=== PATIENT | female | born 1980 | race Caucasian/White ===

== ENCOUNTER → 2018-03-20 12:47 | Outpatient (CLI) | payer OTHER, SELFPAY ==
--- NOTE | 2018-03-20 | DI.MRI.S_ITS ---
PROCEDURE: MR SHOULDER RT W CON INDICATIONS: RIGHT SHOULDER PAIN TECHNIQUE: After the administration of 12 mL of dilute intra-articular Gadolinium contrast, oblique coronal T1 and T2 spin echo with fat saturation, oblique sagittal T1 spin echo with and without fat saturation, oblique sagittal T2 fast spin echo with fat saturation, axial T1 spin echo with fat saturation through the shoulder. COMPARISON: [facility], , [place] ARTHROGRAM SHOULDER RT, 03/20/2018, 13:04. FINDINGS: Image quality: Diagnostic. Rotator cuff: No full-thickness or high-grade partial-thickness tear of the rotator cuff is identified. Low-grade bursal surface partial-thickness tearing is present involving the supraspinatus and infraspinatus tendons with corresponding tendinopathy. There are questionable calcifications along the distal margin of the supraspinatus and infraspinatus tendons. The subscapularis tendon demonstrates mild increased signal. The teres minor tendon is intact. There is no significant atrophy of the rotator cuff muscles. Bones and bursae: No acute fracture or dislocation is present. There is no suspicious osseous lesion. There are mild degenerative changes of the glenohumeral and acromioclavicular joints. Mild downsloping of the lateral acromion is present. There is adequate distention of the glenohumeral joint with the injected contrast. No loose intra-articular joint bodies are evident. None of the contrast extends into the subacromial subdeltoid bursa. However, there is mild thickening of the bursa. Capsule and soft tissues: There is heterogeneity along the posterosuperior aspect of the labrum, suspicious for a subtle labral tear. No detached labral fragment or large labral tears are identified. The long head of the biceps tendon is normally positioned within the bicipital groove and is otherwise intact and unremarkable. The superior and inferior glenohumeral ligaments are intact. The middle glenohumeral ligament is either diminutive or congenitally absent. IMPRESSION: 1. Low-grade partial-thickness tearing and tendinopathy of the supraspinatus and infraspinatus tendons with corresponding tendinopathy. Slight heterogeneity on the distal aspect of the tendons could represent subtle calcifications and clinical correlation to exclude calcific tendinitis is recommended. No full-thickness tear. 2. Possible small posterosuperior labral tear. 3. Mild degenerative changes of the glenohumeral and acromioclavicular joints. Dictated by: Brandon Lopez M.D. on 03/20/2018 at 14:52 Approved by: Brandon Lopez M.D. on 03/20/2018 at 14:55
--- NOTE | 2018-03-20 | DI.RAD.S_ITS ---
PROCEDURE: [place] ARTHROGRAM SHOULDER RT INDICATIONS: RIGHT SHOULDER PAIN TECHNIQUE: The indications, alternatives, benefits, risks, and complications of the procedure were explained to the patient. Written informed consent was obtained and placed in the chart. The shoulder was examined fluoroscopically and a site for needle placement chosen for entry into the glenohumeral joint from an anterior approach. The skin was prepped and draped in a sterile fashion, and 1% lidocaine infiltrated from skin down to joint capsule. A spinal needle was inserted into the glenohumeral joint, and a small amount of iodinated contrast media injected to confirm intra-articular placement of the needle tip. This was followed by approximately 12 mL dilute solution of a gadolinium containing MR contrast agent. The needle was removed and a dressing was applied. The patient was given postprocedural instructions and sent to the MR suite for MR imaging. FINDINGS: A single fluoroscopic spot image demonstrates intra-articular location of injected iodinated contrast. IMPRESSION: Successful fluoroscopically guided administration of dilute Gadolinium solution into the shoulder joint for MR arthrogram. Dictated by: Panda Woodward M.D. on 03/20/2018 at 13:50 Approved by: Panda Woodward M.D. on 03/20/2018 at 13:50
== END ==
PROVIDERS: PCP Family Medicine; Visit Provider Family Medicine
DX: M25.511 Pain in right shoulder (principal); M75.111 Incomplete rotator cuff tear or rupture of right shoulder, not specified as traumatic; M19.011 Primary osteoarthritis, right shoulder
CPT/HCPCS: 23350; 73040; 73222; 77002

== ENCOUNTER → 2018-07-09 13:59 | Outpatient (CLI) | payer OTHER, SELFPAY ==
--- NOTE | 2018-07-09 | DI.MRI.S_ITS ---
PROCEDURE: MR CERVICAL SPINE WO CON INDICATIONS: PAIN IN RIGHT SHOULDER TECHNIQUE: Noncontrast sagittal T1 spin echo and T2 fast spin echo, sagittal STIR, foraminal oblique sagittal T2 fast spin echo, and axial gradient echo or T2 fast spin echo through the cervical spine. COMPARISON: None. FINDINGS: Image quality: Excellent. Alignment and Curvature: There is normal bony alignment. Bones: Marrow demonstrates normal overall signal. Small Schmorl's node noted in the superior endplate of the C7 vertebral body. Spinal Cord: Visualized spinal cord has normal size and signal. No cerebellar tonsillar herniation. Paraspinous Soft Tissues: No paravertebral masses. Prevertebral soft tissues are normal in thickness. C2-C3: Loss of disc signal. No central stenosis. No neural foraminal narrowing. No neural impingement. C3-C4: Loss of disc signal. Mild, diffuse disc bulge. No central stenosis. No neural foraminal narrowing. No neural impingement C4-C5: Loss of disc signal. Mild, diffuse disc bulge. No central stenosis. No neural foraminal narrowing. No neural impingement. C5-C6: Loss of disc signal. Mild to moderate diffuse associated no central stenosis. Mild right uncovertebral joint hypertrophy. Mild right neural foraminal narrowing. No neural impingement. C6-C7: Loss of disc signal. Minimal, diffuse disc bulge. No central stenosis. No neural foraminal narrowing. No neural impingement. C7-T1: Normal appearance. IMPRESSION: 1. Mild multilevel degenerative disease. 2. Mild right C5-C6 uncovertebral joint hypertrophy. 3. No central stenosis. 4. Mild right C5-C6 neural foraminal narrowing. 5. No neural impingement. Dictated by: Leyla Best MD, PhD on 07/09/2018 at 14:41 Approved by: Leyla Best MD, PhD on 07/09/2018 at 14:45
== END ==
PROVIDERS: PCP Family Medicine; Visit Provider Orthopaedic Surgery
DX: M25.511 Pain in right shoulder (principal); M50.31 Other cervical disc degeneration, high cervical region; M48.02 Spinal stenosis, cervical region
CPT/HCPCS: 72141